=== PATIENT | male | born 1955 | race Caucasian/White ===

== ENCOUNTER 2018-03-09 20:02 | Emergency (ER) | payer OTHER ==
[2018-03-09] MEDS: SOD CHLORIDE 0.9% 1,000 ML IV (22:42)
[2018-03-09] MEDS: morphine 4 MG/ML VIAL IV (22:47)
[2018-03-09] MEDS: ONDANSETRON 4 MG INJ IV (22:47)
[2018-03-09] MEDS: KETOROLAC 30 MG INJ IV (22:47)
[2018-03-09 22:50] LABS: ADD MAN DIFF? NO
[2018-03-09 22:53] LABS: BASOPHILS % 0.4 % (0.0-2.0); EOSINOPHILS % 0.1 % (0.0-7.0); HEMATOCRIT 41.4 % (42.0-52.0); HEMOGLOBIN 14.7 g/dl (14.0-18.0); LYMPHOCYTES # 1.1 10^3/ul (0.8-2.9); LYMPHOCYTES % 10.1 % (15.0-51.0); MEAN CORPUSCULAR HEMOGLOBIN 32.5 pg (29.0-33.0); MEAN CORPUSCULAR HGB CONC 35.5 g/dl (32.0-37.0); MEAN CORPUSCULAR VOLUME 91.4 fl (82.0-101.0); MEAN PLATELET VOLUME 10.4 fl (7.4-10.4); MONOCYTE # 0.5 10^3/ul (0.3-0.9); MONOCYTES % 4.6 % (0.0-11.0); NEUTROPHIL # 9.3 10^3/ul (1.6-7.5); NEUTROPHILS % 84.4 % (39.0-77.0); PLATELET COUNT 203 10^3/UL (140-415); RED BLOOD COUNT 4.53 10^6/ul (4.70-6.10); RED CELL DISTRIBUTION WIDTH 12.3 % (11.5-14.5)
[2018-03-09 23:08] LABS: ANION GAP 18 (8-16); BLOOD UREA NITROGEN 21 mg/dl (7-20); CALCIUM 9.4 mg/dl (8.4-10.2); CARBON DIOXIDE 23 mmol/L (21-31); CHLORIDE 105 mmol/L (97-110); CREATININE 0.81 mg/dl (0.61-1.24); GLUCOSE 150 mg/dl (70-220); POTASSIUM 4.1 mmol/L (3.5-5.1); SODIUM 142 mmol/L (135-144)
[2018-03-09 23:25] LABS: TROPONIN-I < 0.012 ng/ml (0.00-0.12)
[2018-03-09 23:54] LABS: ADD UMIC NO; UR ASCORBIC ACID NEGATIVE (NEGATIVE); UR BILIRUBIN (Dip) NEGATIVE (NEGATIVE); UR BLOOD (Dip) NEGATIVE (NEGATIVE); UR CLARITY CLEAR (CLEAR); UR COLOR YELLOW (YELLOW); UR GLUCOSE (Dip) NEGATIVE (NEGATIVE); UR KETONES (Dip) TRACE mg/dL (NEGATIVE); UR LEUKOCYTE ESTERASE (Dip) NEGATIVE Leu/ul (NEGATIVE); UR NITRITE (Dip) NEGATIVE (NEGATIVE); UR SPECIFIC GRAVITY (Dip) 1.017 (1.003-1.030); UR TOTAL PROTEIN (Dip) NEGATIVE (NEGATIVE); UR UROBILINOGEN (Dip) NEGATIVE (NEGATIVE)
== END 2018-03-10 03:24 | disposition home or self-care (01) ==
LOC: E/R 03-10 03:24
DX: N20.0 Calculus of kidney (principal); R07.9 Chest pain, unspecified
CPT/HCPCS: 36415; 71045; 74176; 80048; 81003; 84484; 85025; 87086; 93005; 96374; 96375; 99285-25